=== PATIENT | female | born 1970 | race Caucasian/White ===

== ENCOUNTER 2018-05-25 14:34 | Outpatient (CLI) | payer BC ==
--- NOTE | 2018-05-25 15:28 | RAD ---
FExam: 4 views of the lumbar spine HISTORY: Ankylosing spondylitis. Sacroiliitis. FINDINGS: 5 lumbar type vertebral bodies. Vertebral body height is maintained. No fracture. Disc space heights are preserved. No spondylolisthesis or spondylolysis. Mild loss of disc space height and osteophyte formation the distal thoracic spine and thoracolumbar j unction IMPRESSION: Unremarkable lumbar spine radiograph series.
== END 2018-05-25 14:35 | disposition home or self-care (01) ==
LOC: BICRAD 14:34
PROVIDERS: ATTEND Internal Medicine Rheumatology
DX: M45.7 Ankylosing spondylitis of lumbosacral region (principal); M46.1 Sacroiliitis, not elsewhere classified
CPT/HCPCS: 72110

== ENCOUNTER 2018-08-24 12:21 | Outpatient (CLI) | payer BC ==
--- NOTE | 2018-08-24 13:14 | RAD ---
XR Knee Lt 4 View STANDARD History: Knee pain. M 25.562 Comparison: None. Findings: Mild medial compartment joint space narrowing. Mild tricompartmental osteophytes. Trace moris nt effusion. No acute fracture or malalignment. Impression: Mild degenerative changes. No acute fracture or malalignment.
== END 2018-08-24 12:22 | disposition home or self-care (01) ==
LOC: BICRAD 12:21
PROVIDERS: ATTEND Internal Medicine Rheumatology
DX: M25.562 Pain in left knee (principal); M17.12 Unilateral primary osteoarthritis, left knee

== ENCOUNTER 2019-08-11 12:25 | Outpatient (CLI) | payer BC ==
--- NOTE | 2019-08-11 13:19 | RAD ---
EXAM: 2 views of the bilateral hips HISTORY: Bilateral hip pain COMPARISON: None FINDINGS: 2 views of the bilateral hips shows no evidence of acute fracture or dislocation. No degene rative changes are seen. No soft tissue swelling is present. An IUD is seen in the pelvis. IMPRESSION: No evidence of acute osseous abnormality.
--- NOTE | 2019-08-11 13:41 | RAD ---
PELVIC RADIOGRAPH: Date: 08/11/2019 PROVIDED CLINICAL HISTORY: Pain. FINDINGS: There is no evidence for fracture or other acute osseous abnormality. Alignment appears anatomic. Hip joint spaces appear preserved. IUD overlies the pelvis centrally. Sacroiliac joints appear grossly n ormal. No lytic or blastic bony lesions are seen. IMPRESSION: No evidence for an acute osseous abnormality or significant arthropathy. POS: HIRAL
== END 2019-08-11 12:26 | disposition home or self-care (01) ==
LOC: BICRAD 12:25
PROVIDERS: ATTEND Internal Medicine Rheumatology
DX: M25.551 Pain in right hip (principal); M25.552 Pain in left hip
CPT/HCPCS: 72170; 73522

== ENCOUNTER 2022-12-04 07:34 | Day surgery (SDC) | payer BC ==
[2022-12-03 12:27] VITALS: BMI 36.4
[2022-12-04] MEDS ORDERED: Cyclopentolate 1% Opth Drop 2 ML BOT ONE (08:17)
[2022-12-04] MEDS ORDERED: PHENYLephrine 2.5% Ophth Soln 15 ml Bottle ONE (08:17)
[2022-12-04] MEDS ORDERED: Midazolam HCl 2 mg/2 ml Vial ONE (10:15)
[2022-12-04] MEDS ORDERED: fentaNYL 50 mcg/mL 1 mL Vial ONE (10:15)
[2022-12-04] MEDS ORDERED: Maxitrol 0.1% Opth Oint 3.5 GM TUBE ONE (10:27)
[2022-12-04] MEDS ORDERED: Bupivacaine 0.75% 10 ML VIAL ONE (10:27)
[2022-12-04] MEDS ORDERED: Lidocaine 4% PF 5 ML AMP ONE (10:27)
[2022-12-04] MEDS ORDERED: Triamcinolone 40 MG/ML VIAL ONE (10:27)
[2022-12-04] MEDS ORDERED: Lidocaine 1% PF 5 ML VIAL ONE (10:27)
[2022-12-04] MEDS ORDERED: CEFAZOLIN 1 GM VIAL ONE (10:27)
[2022-12-04] MEDS ORDERED: PROPOFOL 200 MG/20 ML VIAL ONE (10:27)
== END 2022-12-04 12:22 | disposition home or self-care (01) ==
LOC: SDC 07:34
PROVIDERS: ATTEND Ophthalmology Retina Specialist
PROC: 08P Eye, Removal (ICD-10-PCS; principal; 2022-12-04)
DX: T85.398A Other mechanical complication of other ocular prosthetic devices, implants and grafts, initial encounter (principal); Y83.1 Surgical operation with implant of artificial internal device as the cause of abnormal reaction of the patient, or of later complication, without mention of misadventure at the time of the procedure
CPT/HCPCS: J0690; J2250; J2704; J3010; J3301; J3490